=== PATIENT | male | born 1965 | race Caucasian/White ===

== ENCOUNTER → 2017-09-19 | Outpatient (CLI) | payer OTHER | LOC: BMCIMAGING 15:22 | PROVIDERS: ATTEND Family Medicine | DX: S52.122A Displaced fracture of head of left radius, initial encounter for closed fracture (principal); M25.562 Pain in left knee; M25.422 Effusion, left elbow ==

== ENCOUNTER → 2017-09-29 | Outpatient (CLI) | payer OTHER | LOC: BMCIMAGING 11:30 | PROVIDERS: ATTEND Orthopaedic Surgery Hand Surgery | DX: S52.125D Nondisplaced fracture of head of left radius, subsequent encounter for closed fracture with routine healing (principal) ==